=== PATIENT | female | born 2000 | race Two or more races ===

== ENCOUNTER 2021-06-28 09:24 | Emergency (ER) | payer BC ==
[~2021-06-28] VITALS: Ht 160 cm; Wt 52.2 kg
--- NOTE | 2021-06-28 09:36 | NUR ---
TO ER BED 12, BIBRA 102 FROM AIR BNB TOOK PROZAC ESTIMATELY 800MG TOTAL ABOUT 50-60 TABS, 20MG/TAB, TACHY AT 124HR, AAOX4, BREATING EVEN AND NON LABORED, CONNECTED TO MONITOR, 1:1 SITTER AT BEDSIDE
--- NOTE | 2021-06-28 09:42 | NUR ---
[employer] UNIT#[id number] AT BEDSIDE
--- NOTE | 2021-06-28 09:56 | NUR ---
CALLED DISABILITY CASE MANAGER AND NOW AT BEDSIDE WITH PT
--- NOTE | 2021-06-28 10:00 | NUR ---
[employer] UNIT#[id number] PLACED PATIENT IN 5150 HOLD DANGER TO SELF
--- NOTE | 2021-06-28 10:00 | NUR ---
URINE SPECIMEN COLLECTED AND SENT TO LAB
--- NOTE | 2021-06-28 10:08 | NUR ---
PATIENT STATES SHE'S NOT FEELING SUICIDAL ANYMORE
[2021-06-28 10:11] LABS: BASOPHILS # (AUTO) 0.1 K/uL (0.0-0.2); EOSINOPHILS % (AUTO) 3.3 % (0.0-6.0); HEMATOCRIT 35 % (33-45); HEMOGLOBIN 11.2 g/dL (11.5-14.8); LYMPHOCYTES # (AUTO) 2.3 K/uL (0.8-4.8); MEAN CORPUSCULAR HGB CONC 32 g/dl (31.0-36.0); MEAN CORPUSCULAR VOLUME 73 fL (82-100); MONOCYTES # (AUTO) 0.5 K/uL (0.1-1.30); NEUTROPHILS # (AUTO) 4.5 K/uL (1.8-8.9); NEUTROPHILS % (AUTO) 58.7 % (43.0-81.0); PLATELET COUNT (AUTO) 377 K/uL (150-450); RED BLOOD CELL COUNT(AUTO) 4.81 MIL/uL (4.0-5.2); WHITE BLOOD COUNT (AUTO) 7.7 K/uL (4.3-11.0)
--- NOTE | 2021-06-28 10:13 | NUR ---
SW AT BEDSIDE FOR EVAL
--- NOTE | 2021-06-28 10:22 | NUR ---
COVID SWAB DONE AND SENT TO LAB
[2021-06-28 10:28] LABS: ALANINE AMINOTRANSFERASE 30 U/L (12-78); ALBUMIN 4.1 g/dL (3.4-5.0); ALCOHOL, BLOOD < 3 mg/dL (0-0); ALKALINE PHOSPHATASE 70 U/L (46-116); ASPARTATE AMINOTRANSFERASE 35 U/L (15-37); BILIRUBIN,DIRECT 0.1 mg/dL (0.0-0.2); BILIRUBIN,TOTAL 0.6 mg/dL (0.2-1.0); CALCIUM, SERUM 9.4 mg/dL (8.5-10.1); CARBON DIOXIDE 26 mmol/L (21-32); CHLORIDE 99 mmol/L (98-107); CREATININE 0.8 mg/dL (0.6-1.3); GLUCOSE 100 mg/dL (74-106); POTASSIUM 3.6 mmol/L (3.5-5.1); SODIUM SERUM 136 mmol/L (136-145); TOTAL PROTEIN, SERUM 8.9 g/dL (6.4-8.2); UREA NITROGEN, BLOOD 10 mg/dL (7-18)
--- NOTE | 2021-06-28 10:32 | NUR ---
Crisis Member Art is coming to evaluate pt.
[2021-06-28 10:35] LABS: BILIRUBIN,URINE NEGATIVE (NEGATIVE); COLOR,URINE DARK YELLOW (YELLOW); LEUKOCYTE ESTERASE ,URINE TRACE (NEGATIVE); NITRITE, URINE NEGATIVE (NEGATIVE); PH,URINE 7.5 (5.0-8.0); PROTEIN,URINE TRACE mg/dl (NEGATIVE); UGLUCOSE NEGATIVE (NEGATIVE); UROBILINOGEN,URINE 0.2 EU/dL (0.2)
[2021-06-28 10:43] LABS: ACETAMINOPHEN 0 ug/ml (10-30)
--- NOTE | 2021-06-28 10:52 | NUR ---
SS consult for suicidal. Pt. Is a 20-year-old female. Pt. demonstrates adequate insight to the reason for hospitalization. Per pt., she was brought to hospital by [employer] on a hold. Pt. was oriented x4, alert, and cooperative. During interview, pt. was capable of following directions, made appropriate eye-contact, and appeared well-groomed. Pt.'s speech was at a normal rate. Pt.'s mood was elevated. Pt. is from [place]; she is in [place] for a work trip. SW explored pt.'s hx of mental health and substance abuse. Per pt., she has depression and anxiety. She has been going to therapy for over a year. Pt. stated that she sees her therapist once a week and it's helpful. Pt. stated that she took Prozac because she was feeling depressed. Per pt., she started taking Prozac a year ago due to having an . Pt. mentioned that she wants to be a mom, but she is not mentally stable. Pt. reported she is no longer suicidal and does not have a plan on hurting herself. Pt. denies homicidal ideation, auditory hallucinations, visual hallucinations, paranoia, or delusions. SW explored pt.'s living situation. Per pt., she lives with her boyfriend [Colt [phone]] in [place] [[address] [place] [address]. [place] Plan: SW provided available resources and pt. rejected. DARIANA called Art from [facility] to come evaluate pt.
[2021-06-28 11:45] LABS: BACTERIA,URINE Rare /HPF (None Seen); MUCUS,URINE Few /LPF (None Seen); SQUAMOUS EPITHELIAL CELL,UR Few /HPF (None Seen)
[2021-06-28] MEDS ORDERED: IV NS 0.9% 1,000 ML BAG IV ONE ×2 (12:00→13:30)
--- NOTE | 2021-06-28 13:22 | NUR ---
DUE TO CONTINUOUS TACHYCARDIA, POSION CONTROL RECCOMMENDS EKG EVERY [address] CAMERON AWARE
--- NOTE | 2021-06-28 13:27 | NUR ---
ROUGH ROUNDER AT BEDSIDE
--- NOTE | 2021-06-28 13:35 | NUR ---
IV 0.9NS 1L GIVEN BOLUS
--- NOTE | 2021-06-28 14:24 | NUR ---
PT STATED SHE WAS FEELING NAUSEOUS, EMESIS BAG PROVIDED, PT VOMITTED X2. VERBAL ORDER FROM DR CAMERON FOR 4MG IV ZOFRAN WAS RECIEVED.
[2021-06-28] MEDS ORDERED: ONDANSETRON HCL/PF 4 MG/2 ML VIAL ONE (14:31)
[2021-06-28] MEDS ORDERED: ONDANSETRON HCL/PF - ER 4 MG/2 ML VIAL IV ONE (15:00)
--- NOTE | 2021-06-28 17:29 | NUR ---
call from ines,he wants to be called to pick her up if discharged
--- NOTE | 2021-06-28 17:58 | NUR ---
IV removed. Catheter intact and site benign. Pressure and 4x4 applied to site. No bleeding noted.Patient discharged to home in stable condition. Written and verbal after care instructions given. Patient verbalizes understanding of instruction.
[2021-06-28 18:11] VITALS: BP 106/63
== END 2021-06-28 18:11 | disposition home or self-care (01) ==
LOC: ER 09:33
DX: T43.222A Poisoning by selective serotonin reuptake inhibitors, intentional self-harm, initial encounter (principal); R00.0 Tachycardia, unspecified; Y92.89 Other specified places as the place of occurrence of the external cause; F32.A Depression, unspecified; R94.31 Abnormal electrocardiogram [ECG] [EKG]; Z20.822 Contact with and (suspected) exposure to COVID-19
CPT/HCPCS: 36415; 80048; 80076; 80143; 80307; 80320; 81001; 84703; 85025; 87426; 93005 ×2; 96361; 96374; 99285; C9803; J2405; J7030 ×2; G0480